=== PATIENT | female | born 1990 | race Caucasian/White ===

== ENCOUNTER 2021-04-25 14:29 | Emergency (ER) | payer SELFPAY ==
[~2021-04-25] VITALS: Ht 162 cm; Wt 77.0 kg
--- NOTE | 2021-04-25 15:06 | ED General ---
General Chief Complaint: COVID19 Suspect/Confirmed Stated Complaint: CHILLS,FRANKEL,BODY ACHES,COUGH Source of Information: Patient Exam Limitations: No Limitations History of Present Illness Date Seen by Provider: Apr 25, 2021 Time Seen by Provider: 15:05 Initial Comments Headache body aches malaise cough since yesterday. Unvaccinated against COVID and has been exposed by several friends. Timing/Duration: 1-2 Days Severity: Moderate Associated Systoms: Cough, Fever/Chills, Headaches, Malaise Allergies and Home Medications Patient Home Medication List Home Medication List Reviewed: Yes Review of Systems Review of Systems Constitutional: see HPI, fever EENTM: see HPI Respiratory: see HPI, cough Cardiovascular: no symptoms reported Genitourinary: no symptoms reported Musculoskeletal: no symptoms reported Skin: no symptoms reported Psychiatric/Neurological: No Symptoms Reported Hematologic/Lymphatic: No Symptoms Reported Physical Exam Vital Signs Capillary Refill : Height, Weight, BMI Height: '" Weight: lbs. oz. kg; BMI Method: General Appearance: No Apparent Distress, WD/WN Eyes: Bilateral Eye Normal Inspection, Bilateral Eye PERRL, Bilateral Eye EOMI HEENT: PERRL/EOMI, TMs Normal Neck: Full Range of Motion, Normal Inspection Respiratory: Normal Breath Sounds, No Accessory Muscle Use, No Respiratory Distress Cardiovascular: Regular Rate, Rhythm Gastrointestinal: Normal Bowel Sounds, Non Tender Extremity: Normal Capillary Refill, Normal Inspection Neurologic/Psychiatric: Alert, Oriented x3 Skin: Normal Color, Warm/Dry Progress/Results/Core Measures Suspected Sepsis SIRS Temperature: Pulse: Respiratory Rate: Blood Pressure / Mean: Results/Orders Lab Results Laboratory Tests Test 04/25/21 15:03 Range/Units My Orders Orders - ABHINAV RICE APRN Coronavirus Sars-Cov-2 So 2018 (04/25/21 15:04) Vital Signs/I&O Capillary Refill : Departure Impression Primary Impression: Person under investigation for COVID-19 Disposition: 01 HOME, SELF-CARE Condition: Stable Departure-Patient Inst. Decision time for Depature: 15:05 Referrals: NO,LOCAL PHYSICIAN (PCP/Family) Primary Care Physician Patient Instructions: COVID-19 ED Add. Discharge Instructions: 1. Stay quarantined until the COVID results are back tomorrow. Take Tylenol and Motrin for fever or body aches. All discharge instructions reviewed with patient and/or family. Voiced understanding. ABHINAV RICE APRN Apr 25, 2021 15:06
[2021-04-25 15:12] VITALS: BP 119/83
== END 2021-04-25 15:12 | disposition home or self-care (01) ==
LOC: ER 14:32
DX: U07.1 COVID-19 (principal)
CPT/HCPCS: 87636; 99283

== ENCOUNTER 2021-05-25 17:25 | Emergency (ER) | payer SELFPAY ==
[~2021-05-25] VITALS: Ht 162.6 cm; Wt 78.9 kg
--- NOTE | 2021-05-25 17:45 | ED Chest Pain ---
General Stated Complaint: CP Source: patient Exam Limitations: no limitations History of Present Illness Date Seen by Provider: May 25, 2021 Time Seen by Provider: 17:45 Initial Comments To ER with sudden onset of chest tightness while at work [employer]. She had tingling of her lips, tingling of her fingers, weakness in her legs. She was helped to a chair where she sat down. At this time she feels back to normal. She has had this before but did not have it evaluated. Timing/Duration: changing over time Severity/Quality: moderate Location: central Radiation: no radiation Activities at Onset: none Prior CP/Workup: no prior chest pain [facility] po CAMPUS RECEPTIONIST: No NTG [facility] CAMPUS RECEPTIONIST: No Allergies and Home Medications Allergies Coded Allergies: cephalexin (Verified Allergy, Unknown, 04/25/21) Patient Home Medication List Home Medication List Reviewed: Yes Review of Systems Review of Systems Constitutional: see HPI EENTM: No Symptoms Reported Respiratory: See HPI Cardiovascular: See HPI, Chest Pain Gastrointestinal: No Symptoms Reported Genitourinary: No Symptoms Reported Musculoskeletal: no symptoms reported Skin: no symptoms reported Psychiatric/Neurological: No Symptoms Reported Endocrine: No Symptoms Reported Hematologic/Lymphatic: No Symptoms Reported Physical Exam Vital Signs Vital Signs - First Documented 05/25/21 17:30 Temp 36.7 Pulse 64 Resp 20 B/P (MAP) 116/74 (88) O2 Delivery Room Air Capillary Refill : Height, Weight, BMI Height: '" Weight: lbs. oz. kg; 29.00 BMI Method: General Appearance: No Apparent Distress, WD/WN HEENT: PERRL/EOMI, TMs Normal Neck: Full Range of Motion, Normal Inspection Respiratory: No Accessory Muscle Use, No Respiratory Distress Cardiovascular: Regular Rate, Rhythm, Normal Peripheral Pulses Gastrointestinal: Non Tender, Soft Extremity: Normal Capillary Refill, Normal Inspection Neurologic/Psychiatric: Alert, Oriented x3 Skin: Normal Color, Warm/Dry Progress/Results/Core Measures Results/Orders Lab Results Laboratory Tests Test 05/25/21 12:49 Range/Units White Blood Count 6.0 4.3-11.0 10^3/uL Red Blood Count 5.18 H 3.80-5.11 10^6/uL Hemoglobin 13.8 11.5-16.0 g/dL Hematocrit 43 35-52 % Mean Corpuscular Volume 83 80-99 fL Mean Corpuscular Hemoglobin 27 25-34 pg Mean Corpuscular Hemoglobin Concent 32 32-36 g/dL Red Cell Distribution Width 14.5 10.0-14.5 % Platelet Count 253 130-400 10^3/uL Mean Platelet Volume 10.4 9.0-12.2 fL Immature Granulocyte % (Auto) 0 % Neutrophils (%) (Auto) 50 42-75 % Lymphocytes (%) (Auto) 39 12-44 % Monocytes (%) (Auto) 7 0-12 % Eosinophils (%) (Auto) 3 0-10 % Basophils (%) (Auto) 1 0-10 % Neutrophils # (Auto) 3.0 1.8-7.8 10^3/uL Lymphocytes # (Auto) 2.3 1.0-4.0 10^3/uL Monocytes # (Auto) 0.4 0.0-1.0 10^3/uL Eosinophils # (Auto) 0.2 0.0-0.3 10^3/uL Basophils # (Auto) 0.1 0.0-0.1 10^3/uL Immature Granulocyte # (Auto) 0.0 0.0-0.1 10^3/uL Sodium Level 137 135-145 MMOL/L Potassium Level 3.2 L 3.6-5.0 MMOL/L Chloride Level 104 98-107 MMOL/L Carbon Dioxide Level 23 21-32 MMOL/L Anion Gap 10 5-14 MMOL/L Blood Urea Nitrogen 8 7-18 MG/DL Creatinine 0.77 0.60-1.30 MG/DL Estimat Glomerular Filtration Rate 106 BUN/Creatinine Ratio 10 Glucose Level 72 70-105 MG/DL Calcium Level 9.4 8.5-10.1 MG/DL Corrected Calcium 9.2 8.5-10.1 MG/DL Total Bilirubin 0.3 0.1-1.0 MG/DL Aspartate Amino Transf (AST/SGOT) 57 H 5-34 U/L Alanine Aminotransferase (ALT/SGPT) 95 H 0-55 U/L Alkaline Phosphatase 62 40-136 U/L Troponin I < 0.028 <0.028 NG/ML Total Protein 8.0 6.4-8.2 GM/DL Albumin 4.3 3.2-4.5 GM/DL Serum Test, Qualitative NEGATIVE NEGATIVE My Orders Orders - ABHINAV RICE RENTAL MANAGER Cbc With Automated Diff (05/25/21 17:58) Troponin I [place] (05/25/21 17:58) Ekg Tracing (05/25/21 17:58) Hcg,Qualitative Serum (05/25/21 17:58) Comprehensive Metabolic Panel (05/25/21 17:58) Chest 1 View, Ap/Pa Only (05/25/21 17:58) Vital Signs/I&O 05/25/21 17:30 Temp 36.7 Pulse 64 Resp 20 B/P (MAP) 116/74 (88) O2 Delivery Room Air Departure Communication (Admissions) EKG shows sinus rhythm at [address] segment changes no ectopy normal intervals Impression Primary Impression: Panic attack Disposition: HOME, SELF-CARE Condition: Stable Departure-Patient Inst. Decision time for Depature: 18:02 Referrals: ISABELLE JAMES MD (PCP/Family) Primary Care Physician Patient Instructions: Panic Attack ED Add. Discharge Instructions: 1. Return to ER for any concerns. Follow-up with your doctor next week. Your liver enzymes were slightly elevated. This has a multitude of potential causes and warrants follow-up with primary care in 1 to 2 weeks. Work/School Note: Work Release Form Date Seen in the Emergency Department: May 25, 2021 Return to Work: May 26, 2021 ABHINAV RICE APRN May 25, 2021 17:45
[2021-05-25 18:07] LABS: BASOPHILS # (AUTO) 0.1 10^3/uL (0.0-0.1); BASOPHILS % (AUTO) 1 % (0-10); EOSINOPHILS # (AUTO) 0.2 10^3/uL (0.0-0.3); EOSINOPHILS % (AUTO) 3 % (0-10); HEMATOCRIT 43 % (35-52); HEMOGLOBIN 13.8 g/dL (11.5-16.0); LYMPHOCYTES # (AUTO) 2.3 10^3/uL (1.0-4.0); LYMPHOCYTES % (AUTO) 39 % (12-44); MEAN CORPUSCULAR HEMOGLOBIN 27 pg (25-34); MEAN CORPUSCULAR HGB CONC 32 g/dL (32-36); MEAN CORPUSCULAR VOLUME 83 fL (80-99); MEAN PLATELET VOLUME 10.4 fL (9.0-12.2); MONOCYTES # (AUTO) 0.4 10^3/uL (0.0-1.0); MONOCYTES % (AUTO) 7 % (0-12); NEUTROPHILS % (AUTO) 50 % (42-75); PLATELET COUNT 253 10^3/uL (130-400)
--- NOTE | 2021-05-25 18:11 | Diagnostic Imaging Report ---
Indication: Chest pain. FINDINGS: The heart size, mediastinal configuration, and pulmonary vascularity are within normal limits. There is no pleural effusion, pneumothorax or pneumonia. The osseous structures are unremarkable. IMPRESSION: No acute cardiopulmonary abnormality. Dictated by: Dictated on workstation # [id number]
[2021-05-25 18:12] LABS: ALBUMIN 4.3 GM/DL (3.2-4.5); CHLORIDE 104 MMOL/L (98-107); POTASSIUM 3.2 MMOL/L (3.6-5.0); SODIUM 137 MMOL/L (135-145)
[2021-05-25 18:14] LABS: CALCIUM 9.4 MG/DL (8.5-10.1)
[2021-05-25 18:15] LABS: GLUCOSE 72 MG/DL (70-105)
[2021-05-25 18:16] LABS: BILIRUBIN,TOTAL 0.3 MG/DL (0.1-1.0); CARBON DIOXIDE 23 MMOL/L (21-32)
[2021-05-25 18:18] LABS: ALKALINE PHOSPHATASE 62 U/L (40-136)
[2021-05-25 18:19] LABS: BUN/CREATININE RATIO 10; CREATININE SERUM 0.77 MG/DL (0.60-1.30); GFR ESTIMATED 106
[2021-05-25 18:21] LABS: ALANINE AMINOTRANSFERASE 95 U/L (0-55)
[2021-05-25 18:38] VITALS: BP 124/72
== END 2021-05-25 18:38 | disposition home or self-care (01) ==
LOC: EDUNIT# 17:25 → ER 17:26
DX: F41.0 Panic disorder [episodic paroxysmal anxiety] (principal); Z32.02 Encounter for pregnancy test, result negative
CPT/HCPCS: 36415; 71045; 80053; 84484; 84703; 85025; 93005